=== PATIENT | male | born 1950 | race Caucasian/White ===

== ENCOUNTER 2017-10-18 05:57 | Inpatient (IN) | payer OTHER ==
[2017-10-13 14:30] VITALS: BMI 31.6
[2017-10-18] MEDS ORDERED: ROPIVICAINE 0.2%/MORPH PF/KETOROLAC - 51ML DISP.SYRINGE IA ONE ×2 (06:35→10:35)
[2017-10-18] MEDS ORDERED: CEFAZOLIN 2 GM in DEXTROSE 5%-WATER - 50 ML IVPB ONE (06:35)
[2017-10-18] MEDS ORDERED: TRANEXAMIC ACID 1000 MG/10 ML VIAL IVPUSH ONE ×2 (06:35→10:35)
[2017-10-18] MEDS ORDERED: ceFAZolin SODIUM 1 GM VIAL ONE ×2 (07:06→08:48)
[2017-10-18] MEDS ORDERED: VANCOMYCIN 1,000 MG VIAL (RESTRICTED TO ID ONLY) ONE (07:06)
[2017-10-18] MEDS ORDERED: MIDAZOLAM HCL 2 MG/2 ML SINGLE DOSE VIAL ONE (07:11)
[2017-10-18] MEDS ORDERED: DEXAMETHASONE SOD PHOSPHATE/PF 10 MG/ML SDV ONE (07:11)
[2017-10-18] MEDS ORDERED: BUPIVACAINE HCL/PF 2.5 MG/ML - 30 ML VIAL IJ ONE (07:12)
[2017-10-18] MEDS: oxyCODONE HCL 10 MG SUSTAINED ACTING TABLET PO ONE ×2 (07:21→12:18)
[2017-10-18] MEDS: PANTOPRAZOLE 40 MG TABLET (FP) PO ONE ×2 (07:21→12:18)
[2017-10-18] MEDS: GABAPENTIN 300 MG CAPSULE (FP) PO ONE ×2 (07:21→12:18)
[2017-10-18] MEDS: CELECOXIB 200 MG CAPSULE PO ONE ×2 (07:21→12:18)
[2017-10-18] MEDS ORDERED: SUCCINYLCHOLINE CHLORIDE 200 MG/10 ML VIAL ONE (07:22)
--- NOTE | 2017-10-18 07:45 | HP ---
History & Physical Update - History History: No Change - Physical Physical: No Change - Assessment Assessment: No Change - Plan Plan: No Change
[2017-10-18] MEDS ORDERED: PROPOFOL 20 ML ONE ×3 (08:16)
[2017-10-18] MEDS ORDERED: ONDANSETRON 4 MG/2 ML VIAL ONE (08:48)
[2017-10-18] MEDS ORDERED: TRANEXAMIC ACID 1000 MG/10 ML VIAL ONE ×2 (08:48→10:26)
[2017-10-18] MEDS ORDERED: DEXAMETHASONE SOD PHOSPHATE 4 MG/1 ML VIAL ONE (08:48)
[2017-10-18] MEDS ORDERED: VANCOMYCIN 1,000 MG VIAL (RESTRICTED TO ID ONLY) IVPB ONE (10:34)
[2017-10-18] MEDS ORDERED: KETOROLAC TROMETHAMINE 30 MG/1 ML VIAL ONE (11:22)
[2017-10-18] MEDS ORDERED: traMADol HCL 50 MG TABLET ONE (11:23)
[2017-10-18] MEDS ORDERED: ACETAMINOPHEN INJECTION 100 ML IVPB ONE (11:23)
[2017-10-18] MEDS ORDERED: ONDANSETRON 4 MG/2 ML VIAL IVPUSH PRN ×2 (11:33→11:51)
[2017-10-18] MEDS ORDERED: PROMETHAZINE HCL 25 MG/1 ML VIAL IVPUSH PRN (11:33)
[2017-10-18] MEDS ORDERED: oxyCODONE HCL 5 MG TABLET PO PRN (11:33)
--- NOTE | 2017-10-18 11:37 | OP ---
Operative Note - Note: Operative Date: 10/18/17 Pre-Operative Diagnosis: Left knee osteoarthritis Operation: left total knee arthroplasty Implants: Jacinta triathlon Patella [id number],. Triathlon posterior stabilized Femoral size 6 left. Thiathlon Tibial component size 7. Tibial bearing insert size 7 Post-Operative Diagnosis: Same as Pre-op Surgeon: Devonte Cooper Financial Planning Adviser: Rose Jolley Anesthesiologist/COMPUTER OPERATOR: Marcelo Peace Anesthesia: Spinal (With block and sedation) Specimens Removed: Distal femur, partial patella and proximal femur Estimated Blood Loss (mls): 150 Fluid Volume Replaced (mls): 600 Operative Report Dictated: Yes
--- NOTE | 2017-10-18 11:40 | SURG ---
Surgery Snow Maker Note Snow Maker: Rose Jolley PA-C Date of Service: 10/18/17 Diagnosis: Left knee osteoarthritis Procedure: left total knee arthroplasty I was present for the entirety of the operative procedure. For further detail, please refer to operative report. Visit type - Case Type Case Type: Scheduled Admission - Emergency Emergency Visit: No - New patient This patient is new to me today: Yes Date on this admission: 10/18/17
[2017-10-18] MEDS ORDERED: LACTATED RINGERS SOLUTION 1,000 ML IV SCH ×2 (11:45→12:00)
[2017-10-18] MEDS ORDERED: MAGNESIUM HYDROX 2400MG/30ML ORAL SUSPENSION 30 ML CUP PO PRN (11:51)
[2017-10-18] MEDS ORDERED: MAG HYDROX/AL HYDROX/SIMETH 30 ML UNIT-DOSE CUP PO PRN (11:51)
[2017-10-18] MEDS: KETOROLAC TROMETHAMINE 30 MG/1 ML VIAL IVPUSH SCH ×4 (12:06→23:49)
[2017-10-18] MEDS: ACETAMINOPHEN 1000 MG/100 ML VIAL (NON FORMULARY) IVPB ONE ×2 (12:06→12:41)
[2017-10-18] MEDS: traMADol HCL 50 MG TABLET PO SCH ×4 (12:06→23:50)
[2017-10-18] MEDS: ACETAMINOPHEN 325 MG TABLET (FP) PO SCH ×2 (17:34→23:50)
[2017-10-18] MEDS: CEFAZOLIN 2 GM/D5W 2 GM/50 ML ML IVPB SCH (18:05)
[2017-10-18] MEDS ORDERED: DEXAMETHASONE SOD PHOSPHATE 10 MG/1 ML VIAL IVPB ONE (20:00)
[2017-10-18] MEDS: ASCORBIC ACID 500 MG TABLET (FP) PO SCH (21:17)
[2017-10-18] MEDS: ATORVASTATIN CA 40 MG TABLET (FP) PO SCH (21:17)
[2017-10-18] MEDS: GABAPENTIN 300 MG CAPSULE (FP) PO SCH (21:17)
[2017-10-18] MEDS: SENNOSIDES/DOCUSATE COMBO (SENNA PLUS) TABLET (UD) PO SCH (21:17)
[2017-10-18] MEDS: CELECOXIB 200 MG CAPSULE PO SCH (21:18)
[2017-10-18] MEDS: oxyCODONE HCL 10 MG SUSTAINED ACTING TABLET PO SCH (21:18)
[2017-10-18] MEDS ORDERED: GABAPENTIN 300 MG CAPSULE (FP) PO SCH (22:00)
[2017-10-19] MEDS: CEFAZOLIN 2 GM/D5W 2 GM/50 ML ML IVPB SCH (02:07)
[2017-10-19] MEDS: ACETAMINOPHEN 325 MG TABLET (FP) PO SCH ×3 (05:55→18:18)
[2017-10-19] MEDS: KETOROLAC TROMETHAMINE 30 MG/1 ML VIAL IVPUSH SCH (05:55)
[2017-10-19] MEDS: traMADol HCL 50 MG TABLET PO SCH ×3 (05:56→18:18)
[2017-10-19 08:28] LABS: HEMATOCRIT 38.6 % (35.4-49); HEMOGLOBIN 13.3 GM/dl (11.7-16.9); MCH 31.4 pg (25.7-33.7); MCHC 34.4 g/dl (32.0-35.9); MEAN CELL VOLUME 91.2 fl (80-96); MEAN PLT VOLUME 8.6 fl (7.5-11.1); PLATELET COUNT 255 K/MM3 (134-434); RBC 4.23 M/mm3 (4.00-5.60); RDW 12.8 % (11.9-15.9); WHITE BLOOD COUNT 17.9 K/mm3 (4.0-10.8)
[2017-10-19] MEDS ORDERED: PT OWN MED DRAWER 7, Y5N ONE (09:05)
[2017-10-19] MEDS: TRIAMTERENE AND HCTZ - 37.5 MG/25 MG CAPSULE PO SCH (09:09)
[2017-10-19 09:10] LABS: ANION GAP 9 (8-16); BLOOD UREA NITROGEN 29 mg/dl (7-18); CALCIUM 9.4 mg/dl (8.4-10.2); CHLORIDE 101 mmol/L (98-107); CO2 25 mmol/L (22-28); CREATININE 1.2 mg/dl (0.6-1.3); GLUCOSE,RANDOM 208 mg/dl (74-106); POTASSIUM 4.7 mmol/L (3.5-5.1); SODIUM 135 mmol/L (136-145)
[2017-10-19] MEDS: MULTIVITAMINS (DAILY MVI) TABLET (FP) PO SCH (09:10)
[2017-10-19] MEDS: CELECOXIB 200 MG CAPSULE PO SCH ×2 (09:10→21:58)
[2017-10-19] MEDS: ASCORBIC ACID 500 MG TABLET (FP) PO SCH ×2 (09:10→21:59)
[2017-10-19] MEDS: PANTOPRAZOLE 40 MG TABLET (FP) PO SCH (09:10)
[2017-10-19] MEDS: RIVAROXABAN 10 MG TABLET PO SCH (09:10)
[2017-10-19] MEDS: METOPROLOL SUCCINATE 25 MG TAB.SR.24H (FP) PO SCH (09:10)
[2017-10-19] MEDS: GABAPENTIN 300 MG CAPSULE (FP) PO SCH ×2 (09:11→21:58)
[2017-10-19] MEDS: SENNOSIDES/DOCUSATE COMBO (SENNA PLUS) TABLET (UD) PO SCH ×2 (09:11→21:59)
[2017-10-19] MEDS: oxyCODONE HCL 10 MG SUSTAINED ACTING TABLET PO SCH ×2 (09:11→21:59)
--- NOTE | 2017-10-19 09:50 | PN ---
Progress Note (short form) - Note Progress Note: 67M POD1 s/p left TKR under spinal anesthetic with peripheral nerve blocks for post operative pain relief. Pt is doing well, states that pain is well controlled. Pt does not report any anesthetic complications. Pt reports slight ipsilateral numbness resolving as block wears off. Motor function is intact in bilateral lower extremities.
[2017-10-19] MEDS: oxyCODONE HCL 5 MG TABLET PO PRN (12:05)
[2017-10-19] MEDS: ATORVASTATIN CA 40 MG TABLET (FP) PO SCH (21:58)
--- NOTE | 2017-10-19 22:37 | PN ---
Progress Note (short form) - Note Progress Note: Pt seen and examined. Doing well. Minimal pain. Ambulated with PT. AVSS Selected Entries 10/19/17 10/19/17 14:08 20:43 Temperature 97.9 F Pulse Rate 90 Respiratory 18 Rate Blood Pressure 146/71 O2 Sat by Pulse 97 Oximetry (%) Oxygen Delivery Room Air Method Laboratory Tests 10/19/17 10/19/17 07:00 07:00 WBC 17.9 H Hgb 13.3 Hct 38.6 Plt Count 255 Sodium 135 L Potassium 4.7 Chloride 101 Carbon Dioxide 25 Anion Gap 9 BUN 29 H Creatinine 1.2 Calcium 9.4 Gen: NAD LLE: c/d/i, NVID A/P 67yo male POD#1 s/p L TKA 1. PT/OOB - WBAT LLE 2. D/C home in AM. F/U in office in 10-14 days.
[2017-10-20] MEDS: ACETAMINOPHEN 325 MG TABLET (FP) PO SCH ×3 (00:07→12:19)
[2017-10-20] MEDS: traMADol HCL 50 MG TABLET PO SCH ×3 (00:08→12:21)
[2017-10-20 05:01] VITALS: PULSE 73
[2017-10-20 08:32] LABS: HEMATOCRIT 32.6 % (35.4-49); MCH 30.5 pg (25.7-33.7); MCHC 33.8 g/dl (32.0-35.9); MEAN CELL VOLUME 90.3 fl (80-96); MEAN PLT VOLUME 8.8 fl (7.5-11.1); PLATELET COUNT 225 K/MM3 (134-434); RBC 3.61 M/mm3 (4.00-5.60); RDW 12.8 % (11.9-15.9); WHITE BLOOD COUNT 11.7 K/mm3 (4.0-10.8)
[2017-10-20] MEDS: METOPROLOL SUCCINATE 25 MG TAB.SR.24H (FP) PO SCH (09:49)
[2017-10-20] MEDS: CELECOXIB 200 MG CAPSULE PO SCH (09:50)
[2017-10-20] MEDS: PANTOPRAZOLE 40 MG TABLET (FP) PO SCH (09:50)
[2017-10-20] MEDS: MULTIVITAMINS (DAILY MVI) TABLET (FP) PO SCH (09:50)
[2017-10-20] MEDS: GABAPENTIN 300 MG CAPSULE (FP) PO SCH (09:50)
[2017-10-20] MEDS: ASCORBIC ACID 500 MG TABLET (FP) PO SCH (09:50)
[2017-10-20] MEDS: oxyCODONE HCL 10 MG SUSTAINED ACTING TABLET PO SCH (09:51)
[2017-10-20] MEDS: SENNOSIDES/DOCUSATE COMBO (SENNA PLUS) TABLET (UD) PO SCH (09:51)
[2017-10-20] MEDS: oxyCODONE HCL 5 MG TABLET PO PRN (09:51)
[2017-10-20 09:52] LABS: ANION GAP 9 (8-16); BLOOD UREA NITROGEN 35 mg/dl (7-18); CALCIUM 8.9 mg/dl (8.4-10.2); CHLORIDE 97 mmol/L (98-107); CO2 27 mmol/L (22-28); CREATININE 1.2 mg/dl (0.6-1.3); GLUCOSE,RANDOM 113 mg/dl (74-106); POTASSIUM 4.2 mmol/L (3.5-5.1); SODIUM 133 mmol/L (136-145)
[2017-10-20] MEDS ORDERED: PT OWN MED DRAWER 7, Y5N ONE (09:56)
[2017-10-20] MEDS: TRIAMTERENE AND HCTZ - 37.5 MG/25 MG CAPSULE PO SCH (09:57)
[2017-10-20] MEDS: RIVAROXABAN 10 MG TABLET PO SCH (09:58)
--- NOTE | 2017-10-20 11:16 | DS ---
Physical Examination Vital Signs: Vital Signs Temperature 98.6 F 10/20/17 05:00 Pulse Rate 73 10/20/17 05:00 Respiratory Rate 20 10/20/17 05:00 Blood Pressure 97/49 10/20/17 05:00 O2 Sat by Pulse Oximetry (%) 97 10/20/17 08:18 Labs: CBC, BMP 10/20/17 08:20 10/20/17 08:20 Discharge Summary Reason For Visit: OSTEOARTHRITIS OF LEFT KNEE Current Active Problems Unilateral primary osteoarthritis, left knee (Acute) Procedures: Principal: Left TKA Hospital Course: Admitted for elective surgery. Procedure performed without complications. Pt received postoperative antibiotic prophylaxis and DVT ppx. Ambulated with physical therapy. Stable for discharge home with outpatient followup. Condition: Stable - Instructions Diet, Activity, Other Instructions: Dr. Cooper - Knee Replacement Instructions Keep the Aquacel dressing on until removed by Dr. Cooper in 10-14 days - it is antibacterial and waterproof and you can shower with it on, do not submerge incision until cleared by your surgeon. Call the office for a follow-up appointment with Dr. Cooper in 10-14 days. . Take Xarelto 20mg daily as directed by your transit planner, this will also cover you for DVT prophylaxis immediately post op. Take one Pantoprazole 40mg daily for 6 weeks to protect against heartburn and ulcers. Take a multivitamin, stool softener, and extra vitamin C supplement daily. Take Cephalexin 500mg three times daily for 14 days; this is an antibiotic to prevent help infection while the skin incision heals. For pain: BEFORE THE SURGERY, THE ANESTHESIOLOGIST PERFORMED A NERVE BLOCK WHICH LASTS FOR 48-72 HOURS. YOUR PAIN LEVEL MAY INCREASE WHEN THIS WEARS OFF - EXPECT THAT TO HAPPEN IN APPROXIMATELY 3 DAYS (WEDNESDAY) AND TAKE PAIN MEDICATIONS NEEDED. *Mild pain (1-3/10): Take 1 Tramadol tablet every 4 hours as needed. Moderate pain (4-6/10): Take 1 Tramadol tablet and 1 Percocet tablet every 4 hours as needed. Severe pain (7-10/10): Take 1 Tramadol tablet and 2 Percocet tablets every 4 hours as needed. Activity: You can put as much weight on the operative leg as you want. Right after you get home, there will be a physical therapist coming to your house to help you walk around and bend/straighten your knee. After your follow-up appointment, you will be sent for more intensive outpatient physical therapy which will include machines and equipment that the home therapist cannot bring to your house. Always use a walker or cane for balance and to prevent falls. Disposition: VNS/HOME HEALTH CARE - Home Medications Comprehensive Discharge Medication List: Ambulatory Orders Atorvastatin Ca [Lipitor] 40 mg PO HS 10/13/17 Metoprolol Succinate [Toprol Xl] 25 mg PO DAILY 10/13/17 Rivaroxaban [Xarelto -] 20 mg PO DAILY 10/13/17 Triamterene/Hydrochlorothiazid [Triamterene-Hctz 37.5-25 mg Cp] 1 each PO DAILY 10/13/17 Ascorbic Acid [Vitamin C -] 500 mg PO BID tablet 10/18/17 Cephalexin [Keflex] 500 mg PO TID #42 capsule 10/18/17 Multivitamins [Multivit ([facility] Formulary)] 1 tab PO DAILY tab 10/18/17 Oxycodone HCl/Acetaminophen [Percocet 5-325 mg Tablet] 1 - 2 tab PO Q4H PRN #60 tablet MDD 8 10/18/17 Pantoprazole Sodium [Protonix -] 40 mg PO DAILY #40 tablet.ec 10/18/17 Tramadol HCl [Ultram -] 50 mg PO Q4H PRN #90 tablet MDD 6 10/18/17
[2017-10-20 13:37] VITALS: BP 123/50; TEMP 97.9
--- NOTE | 2017-10-26 16:28 | PATH ---
Surgical Pathology Report Patient Name: YUNG CORNELL Med. Rec. #: [id number] /Age/Gender: 1950 (Age: 67) / M Account: [id number] Location: [facility] Taken: 10/18/2017 Received: 10/18/2017 Reported: 10/26/2017 Physicians: Devonte Cooper M.D. Specimen(s) Received LEFT KNEE BONES Clinical History Left knee osteoarthritis Final Diagnosis BONE, LEFT KNEE, TOTAL KNEE REPLACEMENT: DEGENERATIVE JOINT DISEASE. Electronically Signed Rose Mcdaniel M.D. Gross Description Received in formalin labeled "left knee bone," is a 10.3 x 9.8 x 1.5 cm aggregate of multiple irregular portions of bone with minimal attached soft tissue, consistent with knee bones. There is a 1.5 cm in greatest dimension area of eburnation identified. The remaining articular surfaces are martinez-yellow and diffusely granular. The underlying trabecular bone is yellow and hard. Natural Resources Technician sections are submitted in one cassette, following decalcification. 10/20/2017 [facility]10/20/2017
== END 2017-10-20 14:50 | disposition home health service (06) | DRG 302 ==
LOC: FM/S 05:57
PROVIDERS: ADMIT Student in an Organized Health Care Education/Training Program; ATTEND Student in an Organized Health Care Education/Training Program
PROC: 0SRD0JA Replacement of Left Knee Joint with Synthetic Substitute, Uncemented, Open Approach (ICD-10-PCS; principal; 2017-10-18 08:00)
DX: M17.12 Unilateral primary osteoarthritis, left knee (principal)
CPT/HCPCS: 36415; 73560-TC-LT; 80048; 85027; 94010; 94760; 97116-GP; 97162-GP; J1100

== ENCOUNTER 2018-12-20 06:20 | Observation (INO) | payer OTHER ==
[2018-12-20] MEDS ORDERED: KETOROLAC TROMETHAMINE 30 MG/1 ML VIAL IVPUSH ONE (06:49)
[2018-12-20] MEDS ORDERED: morphine CARPU-JECT 2 MG/1 ML DISP.SYRIN IVPUSH ONE ×2 (06:49→14:26)
--- NOTE | 2018-12-20 06:49 | PDOC ---
History of Present Illness - General Chief Complaint: Pain, Acute Stated Complaint: PAIN AND SWELLING TO LEFT KNEE Time Seen by Provider: 12/20/18 06:43 History Source: Patient Exam Limitations: No Limitations - History of Present Illness Initial Comments: 12/20/18 06:48 This is a 68-year-old male who comes in complaining of acute onset 1 day of left knee and lower leg swelling and pain. Patient is status post left knee replacement approximately one year ago. Patient said he was at physical therapy yesterday and everything was fine and then after physical therapy he started developing pain in the knee which progressed to pain in the calf as well as swelling in the calf and knee. Patient denies any fevers or chills. Patient said it is very painful and was difficult for him to walk. Allergies: as per nursing notes Past Medical History: hypertension, high cholesterol Social history: Lives with family. No smoking. No alcohol. No illicit drugs. Surgical history: left knee replacement General: No fevers or chills, no weakness, no weight loss HEENT: No change in vision. No sore throat,. No ear pain CardioVascular: no chest discomfort. No shortness of breath Respiratory:No cough, or wheezing. Gastrointestinal: no nausea, vomiting, diarrhea or constipation, No rectal bleeding Genitourinary: No dysuria, hematuria, or frequency Musculoskeletal: No joint or muscle pain or swelling Neurologic: No headache, vertigo, dizziness or loss of consciousness Psychiatric: nor depression Skin: No rashes or easy bruising Endocrine: no increased thirst or abnormal weight change Allergic: no skin or latex allergy All other systems reviewed and normal GENERAL: The patient is awake, alert, and fully oriented, in no acute distress. HEAD: Normal with no signs of trauma. EYES: Pupils equal, round and reactive to light, extraocular movements intact, sclera anicteric, conjunctiva clear. EXTREMITIES:atraumatic, healed scar over knee, knee is swollen with tenderness , calf is also swollen and tender, no palpable cord of thigh, DP pulses are 2 + bilateral with good cap refill. NEUROLOGICAL: Normal speech, normal gait. PSYCH: Normal mood, normal affect. SKIN: Warm, Dry, normal turgor, no rashes or lesions noted. Case discussed in detail with oncoming Emergency Physician including history, physical exam and ancillary studies. Oncoming Emergency Physician has assumed care for the patient and will complete the evaluation and treatment. Patient is aware of the plan. Pt is clinically unchanged and stable. Past History - Past Medical History Allergies/Adverse Reactions: Allergies Allergy/AdvReac Type Severity Reaction Status Date / Time No Known Drug Allergies Allergy Verified 12/20/18 06:32 Home Medications: Ambulatory Orders Atorvastatin Ca [Lipitor] 40 mg PO HS 10/13/17 Metoprolol Succinate [Toprol Xl] 25 mg PO DAILY 10/13/17 Triamterene/Hydrochlorothiazid [Triamterene-Hctz 37.5-25 mg Cp] 1 each PO DAILY 10/13/17 traMADol HCL [Ultram -] 50 mg PO Q4H PRN #90 tablet MDD 6 10/18/17 Anemia: No Asthma: No Cancer: No Cardiac Disorders: Yes (irregular heart-A-Fib) CVA: No COPD: No CHF: No Dementia: No Diabetes: No GI Disorders: No Disorders: No HTN: Yes Hypercholesterolemia: Yes Liver Disease: No Seizures: No Thyroid Disease: No - Surgical History Abdominal Surgery: No Appendectomy: No Cardiac Surgery: Yes (defibrillator) Cholecystectomy: No Lung Surgery: No Neurologic Surgery: No Orthopedic Surgery: Yes (L knee arthroscopy) - Suicide/Smoking/Psychosocial Hx Smoking History: Never smoked Have you smoked in the past 12 months: No Information on smoking cessation initiated: No Hx Alcohol Use: No Drug/Substance Use Hx: No Substance Use Type: Alcohol Hx Substance Use Treatment: No *Physical Exam - Vital Signs Last Vital Signs Temp Pulse Resp BP Pulse Ox 97.8 F 81 16 141/83 99 12/20/18 06:38 12/20/18 06:38 12/20/18 06:38 12/20/18 06:38 12/20/18 06:38 Moderate Sedation - Procedure Monitoring Vital Signs: Procedure Monitoring Vital Signs Temperature 97.8 F 12/20/18 06:38 Pulse Rate 81 12/20/18 06:38 Respiratory Rate 16 12/20/18 06:38 Blood Pressure 141/83 12/20/18 06:38 O2 Sat by Pulse Oximetry (%) 99 12/20/18 06:38 ED Treatment Course - LABORATORY CBC & Chemistry Diagram: 12/22/18 07:06 12/21/18 07:10 *DC/Admit/Observation/Transfer Diagnosis at time of Disposition: Hematoma of left lower extremity Qualifiers: Encounter type: initial encounter Qualified Code(s): S80.12XA - Contusion of left lower leg, initial encounter - Discharge Dispostion Disposition: HOME Condition at time of disposition: Stable - Referrals - Patient Instructions - Post Discharge Activity
[2018-12-20] MEDS ORDERED: KETOROLAC TROMETHAMINE 30 MG/1 ML VIAL ONE (07:16)
[2018-12-20] MEDS ORDERED: morphine SULFATE 4 MG/ML VIAL ONE ×2 (07:16→14:26)
[2018-12-20 07:27] LABS: BASO % 0.6 % (0-2.0); EOS % 1.7 % (0-4.5); HEMATOCRIT 41.4 % (35.4-49); HEMOGLOBIN 13.8 GM/dl (11.7-16.9); LYMPH % 19.7 % (8-40); MCH 30.1 pg (25.7-33.7); MCHC 33.2 g/dl (32.0-35.9); MEAN CELL VOLUME 90.7 fl (80-96); MEAN PLT VOLUME 7.5 fl (7.5-11.1); MONO % 7.4 % (3.8-10.2); NEUT % 70.6 % (42.8-82.8); PLATELET COUNT 244 K/MM3 (134-434); RBC 4.56 M/mm3 (4.00-5.60); RDW 12.8 % (11.9-15.9); WHITE BLOOD COUNT 8.7 K/mm3 (4.0-10.8)
[2018-12-20 08:00] LABS: ALK PHOS 84 U/L (45-117); ANION GAP 9 MMOL/L (8-16); BILIRUBIN,TOTAL 0.9 mg/dl (0.2-1); BLOOD UREA NITROGEN 24 mg/dl (7-18); CHLORIDE 102 mmol/L (98-107); CO2 25 mmol/L (21-32); CREATININE 1.1 mg/dl (0.55-1.3); GLUCOSE,RANDOM 142 mg/dl (74-106); POTASSIUM 3.9 mmol/L (3.5-5.1); SGOT/AST 20 U/L (15-37); SGPT/ALT 20 U/L (13-61); SODIUM 136 mmol/L (136-145); TOT PROT 6.7 g/dl (6.4-8.2); URIC ACID 8.6 mg/dl (2.6-7.2)
--- NOTE | 2018-12-20 10:52 | PDOC ---
*Physical Exam - Vital Signs Last Vital Signs Temp Pulse Resp BP Pulse Ox 97.8 F 81 16 141/83 99 12/20/18 06:38 12/20/18 06:38 12/20/18 06:38 12/20/18 06:38 12/20/18 06:38 - Physical Exam Comments: 12/20/18 10:50 alert, nad lying in stretcher afebrile LLE: swelling with subtle ecchymosis to calf, extends from knee to distal lower leg, foot otherwise well perfused with 2+ distal pulses. FROM ankle/toes, slightly limited at knee Heart Score/ECG Review #1 ECG reviewed & interpreted by me at: 12:35 General ECG Interpretation: Sinus Rhythm, Normal Rate (67), Normal Intervals ( qtc 456), No acute ischemic changes ED Treatment Course - LABORATORY CBC & Chemistry Diagram: 12/20/18 07:05 12/20/18 07:05 - ADDITIONAL ORDERS Additional order review: Laboratory Results 12/20/18 07:05 Sodium 136 Potassium 3.9 Chloride 102 Carbon Dioxide 25 Anion Gap 9 BUN 24 H Creatinine 1.1 Creat Clearance w eGFR 66.57 Random Glucose 142 H Uric Acid 8.6 H Calcium 9.0 Total Bilirubin 0.9 AST 20 ALT 20 Alkaline Phosphatase 84 Total Protein 6.7 Albumin 4.0 12/20/18 07:05 RBC 4.56 MCV 90.7 MCHC 33.2 RDW 12.8 MPV 7.5 D Neutrophils % 70.6 Lymphocytes % 19.7 Monocytes % 7.4 Eosinophils % 1.7 Basophils % 0.6 - RADIOLOGY Radiology Studies Ordered: Category Date Time Status LOWER EXTREMITY CT WITH CONTR [CT] Stat CT Scan 12/20/18 10:29 Ordered - Medications Given in the ED: ED Medications Discontinued Medications Generic Name Dose Route Start Last Admin Trade Name Freq PRN Reason Stop Dose Admin Ketorolac Tromethamine 30 mg 12/20/18 06:49 12/20/18 07:23 Toradol Injection - IVPUSH 12/20/18 06:50 30 mg ONCE ONE Administration Morphine Sulfate 2 mg 12/20/18 06:49 12/20/18 07:22 Morphine Injection - IVPUSH 12/20/18 06:50 2 mg ONCE ONE Administration Medical Decision Making - Medical Decision Making 12/20/18 10:51 received signout on this 68y/o M with spontaneous swelling/pain to Left lower leg, h/o TKR and afib on asa. presentation seems most consistent with hematoma, ? cyst rupture. labs sent and are wnl, no leukocytosis and only subtle elevation in uric acid. doppler shows patent veins but >6cm mass/hematoma. Will obtain CT for further evaluation. 12/20/18 11:56 CT confirms 6x3.5x14cm L gastrocnemius hematoma. Pt pain improved but unable to bear weight. Dr. Cooper (pt's orthopedic) consulted, will likely need admission for pulse checks and pain control. 12/20/18 12:39 Dr. Cooper away, Dr. Khan covering and called. Admit to [facility], covering Dr. Patel. 12/20/18 12:59 Accepted for obs med/surg by Dr. Cooley, signout given to ROSANGELA Albert. *DC/Admit/Observation/Transfer Diagnosis at time of Disposition: Hematoma of left lower extremity Qualifiers: Encounter type: initial encounter Qualified Code(s): S80.12XA - Contusion of left lower leg, initial encounter - Discharge Dispostion Condition at time of disposition: Stable Decision to Admit order: Yes - Referrals - Patient Instructions - Post Discharge Activity
[2018-12-20] MEDS ORDERED: SODIUM CHLORIDE 1,000 ML IV ONE (11:20)
--- NOTE | 2018-12-20 13:21 | HP ---
CHIEF COMPLAINT: Pain and swelling left lower leg x 1 day PCP: Dr. Patel HISTORY OF PRESENT ILLNESS: 68 year-old male with a PMH significant for HTN, HLD, atrial fibrillation on ASA only, s/p left total knee arthroplasty in 10/2017, who presents to the ED with pain and swelling to left lower leg x 1 day. 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 He went to work yesterday morning in his usual state of health. During the course of the day he developed pain in his left lower leg. The pain progressed throughout the day, associated with swelling. He came home limping. He elevated and iced the leg and went to bed. He awoke during the night with severe pain and came to the ED. He has difficulty ambulating. Denies fever, sweats, chills. Patient cannot recall injuring the leg or any type of trauma. He did have a previous episode of a hematoma around the left knee approximately one month post-op. At the time he was Xarelto. 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 Patient has been on ASA ever since, about 11 months. ER course was notable for: (1) Hgb 13.8 (2) US left leg: (1) negative for DVT; (2) large complex mass wihtin medical calf c/w hematoma (3) CT LLE: 6.2 x 3.5 x 13.9cm hematoma within the gastrocnemius muscle of the proximal calf (4) ECG: sinus rhythm Recent Travel: No PAST MEDICAL HISTORY: Hypertension Hyperlipidemia Atrial fibrillation PAST SURGICAL HISTORY: Left total knee arthroplasty (10/2017, Kenneth) AICYadiar Social History: Smoking: never Alcohol: no Drugs: no Family History: Allergies No Known Drug Allergies Allergy (Verified 12/20/18 06:32) HOME MEDICATIONS: Home Medications Medication Instructions Recorded Atorvastatin Ca [Lipitor] 40 mg PO HS 10/13/17 Metoprolol Succinate [Toprol Xl] 25 mg PO DAILY 10/13/17 Triamterene/Hydrochlorothiazid 1 each PO DAILY 10/13/17 [Triamterene-Hctz 37.5-25 mg Cp] traMADol HCL [Ultram -] 50 mg PO Q4H PRN #90 tablet MDD 6 10/18/17 Aspirin 81 mg PO DAILY 12/20/18 REVIEW OF SYSTEMS CONSTITUTIONAL: Absent: fever, chills, diaphoresis, generalized weakness, malaise, loss of appetite, weight change HEENT: Absent: rhinorrhea, nasal congestion, throat pain, throat swelling, difficulty swallowing, mouth swelling, ear pain, eye pain, visual changes CARDIOVASCULAR: Absent: chest pain, syncope, palpitations, irregular heart rate, lightheadedness , peripheral edema RESPIRATORY: Absent: cough, shortness of breath, dyspnea with exertion, orthopnea, wheezing, stridor, hemoptysis GASTROINTESTINAL: Absent: abdominal pain, abdominal distension, nausea, vomiting, diarrhea, constipation, melena, hematochezia GENITOURINARY: Absent: dysuria, frequency, urgency, hesitancy, hematuria, flank pain, genital pain MUSCULOSKELETAL: +pain and swelling to LLE Absent: myalgia, arthralgia, joint swelling, back pain, neck pain SKIN: Absent: rash, itching, pallor HEMATOLOGIC/IMMUNOLOGIC: Absent: easy bleeding, easy bruising, lymphadenopathy, frequent infections ENDOCRINE: Absent: unexplained weight gain, unexplained weight loss, heat intolerance, cold intolerance NEUROLOGIC: Absent: headache, focal weakness or paresthesias, dizziness, unsteady gait, seizure, mental status changes, bladder or bowel incontinence PSYCHIATRIC: Absent: anxiety, depression, suicidal or homicidal ideation, hallucinations. PHYSICAL EXAMINATION Vital Signs - 24 hr 12/20/18 06:38 Temperature 97.8 F Pulse Rate 81 Respiratory 16 Rate Blood Pressure 141/83 O2 Sat by Pulse 99 Oximetry (%) GENERAL: Awake, alert, and fully oriented, in no acute distress. LUNGS: Breath sounds equal, clear to auscultation bilaterally. No wheezes, and no crackles. No accessory muscle use. HEART: Regular rate and rhythm, S1 and S2 ABDOMEN: Soft, nontender, not distended, normoactive bowel sounds, no guarding, no rebound tenderness UPPER EXTREMITIES: 2+ pulses, warm, well-perfused. No cyanosis. No clubbing. No peripheral edema. LEFT LOWER EXTREMITY: strong palpable DP pulse, 2+ pulses, warm, well-perfused. Swelling from knee to ankle, no erythema, no warmth. NEUROLOGICAL: Cranial nerves II-XII intact. Normal speech. Laboratory Results - last 24 hr 12/20/18 12/20/18 07:05 07:05 WBC 8.7 RBC 4.56 Hgb 13.8 Hct 41.4 D MCV 90.7 MCH 30.1 MCHC 33.2 RDW 12.8 Plt Count 244 MPV 7.5 D Absolute Neuts (auto) 6.2 Neutrophils % 70.6 Lymphocytes % 19.7 Monocytes % 7.4 Eosinophils % 1.7 Basophils % 0.6 Sodium 136 Potassium 3.9 Chloride 102 Carbon Dioxide 25 Anion Gap 9 BUN 24 H Creatinine 1.1 Creat Clearance w eGFR 66.57 Random Glucose 142 H Uric Acid 8.6 H Calcium 9.0 Total Bilirubin 0.9 AST 20 ALT 20 Alkaline Phosphatase 84 Total Protein 6.7 Albumin 4.0 ASSESSMENT/PLAN: 68 year-old male with a PMH significant for HTN, HLD, atrial fibrillation on ASA only, s/p left total knee arthroplasty in 10/2017. Placed on observation for a large left calf hematoma. 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 Cronin stopped Xarelto at that time and switched patient to ASA --discussed with MEREDITH Monson with Dr. Cooper's office; will see patient as outpatient --DP pulse checks q1h overnight --monitor for signs and symptoms of compartment syndrome: pain, pallor paresthesia, pulselessness, paralysis --consider reimaging tomorrow to assess size of hematoma --monitor h/h Atrial fibrillation --presently in sinus rhythm --hold ASA secondary to bleed --continue Toprol XL 25mg daily Hypertension --BP stable --continue traimterine/HCTZ Hyperlipidemia --continue atorvastatin FEN Fluids: PO intake adequate Electrolytes: replete as indicated Nutrition: low sodium DVT prophylaxis: hold chemical prophylaxis due to bleeding; SCD right leg; oob Dispo: continues to require observation. Full code. Visit type - Emergency Visit Emergency Visit: Yes ED Registration Date: 12/20/18 Care time: The patient presented to the Emergency Department on the above date and was hospitalized for further evaluation of their emergent condition. - New Patient This patient is new to me today: Yes Date on this admission: 12/23/18 - Critical Care Critical Care patient: No
[2018-12-20 19:11] VITALS: BMI 31.4
[2018-12-20] MEDS ORDERED: morphine CARPU-JECT 2 MG/1 ML DISP.SYRIN IVPUSH PRN (20:20)
[2018-12-20] MEDS ORDERED: ACETAMINOPHEN 1000 MG/100 ML VIAL (NON FORMULARY) IVPB PRN (20:21)
[2018-12-20] MEDS: DEXTROSE 5%-NORMAL SALINE 1,000 ML IV SCH (20:30)
[2018-12-20] MEDS ORDERED: LIDOCAINE HCL 1%, 10 MG/ML (50 mL VIAL) SQ ONE (20:37)
--- NOTE | 2018-12-20 20:38 | CONSULT ---
Consult Consult Specialty:: General Surgery Reason for Consultation:: LLE acute compartmant syndrome? - History of Present Illness Chief Complaint: LLE swelling History of Present Illness: 68 year-old male with a PMH significant for HTN, HLD, atrial fibrillation on ASA only, s/p left total knee arthroplasty in 10/2017, who presents to the ED with pain and swelling to left lower leg x 1 day after working in a hole doing a plumbing project. 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 He went to work yesterday morning in his usual state of health. During the course of the day he developed pain in his left lower leg. The pain progressed throughout the day, associated with swelling. He came home limping. He elevated and iced the leg and went to bed. He awoke during the night with severe pain and came to the ED. He has difficulty ambulating. Denies fever, sweats, chills. Patient cannot recall injuring the leg or any type of trauma. He did have a previous episode of a hematoma around the left knee approximately one month post -op. At the time he was Xarelto. His property developer stopped Xarelto and switched patient to ASA. Patient has been on ASA ever since, about 11 months. we were asked to assess. - History Source History Provided By: Patient, Medical Record Limitations to Obtaining History: No Limitations - Alcohol/Substance Use Hx Alcohol Use: No - Smoking History Smoking history: Never smoked Have you smoked in the past 12 months: No Home Medications - Allergies Allergies/Adverse Reactions: Allergies Allergy/AdvReac Type Severity Reaction Status Date / Time No Known Drug Allergies Allergy Verified 12/20/18 06:32 - Home Medications Home Medications: Ambulatory Orders Atorvastatin Ca [Lipitor] 40 mg PO HS 10/13/17 Metoprolol Succinate [Toprol Xl] 25 mg PO DAILY 10/13/17 Triamterene/Hydrochlorothiazid [Triamterene-Hctz 37.5-25 mg Cp] 1 each PO DAILY 10/13/17 traMADol HCL [Ultram -] 50 mg PO Q4H PRN #90 tablet MDD 6 10/18/17 Aspirin 81 mg PO DAILY 12/20/18 Review of Systems - Review of Systems Constitutional: denies: Chills, Fever Eyes: denies: Blind Spots, Recent Change in Vision HENT: denies: Difficult Swallowing, Throat Pain Neck: denies: Decreased ROM, Pain on Movement Cardiovascular: denies: Chest Pain, Palpitations Respiratory: denies: Cough, SOB Gastrointestinal: denies: Abdominal Pain, Constipation, Diarrhea Genitourinary: denies: Discharge, Dysuria Breasts: reports: No Symptoms Reported. denies: See HPI, Pain Musculoskeletal: reports: Joint Pain, Joint Swelling Integumentary: denies: Change in Color, Eczema, Rash Neurological: denies: Seizure, Syncope Endocrine: denies: Unexplained Weight Gain, Unexplained Weight Loss Hematology/Lymphatic: denies: Easily Bruised, Excessive Bleeding Psychiatric: denies: Anxiety, Depression Physical Exam Vital Signs: Vital Signs Temperature 98.7 F 12/20/18 17:34 Pulse Rate 70 12/20/18 17:34 Respiratory Rate 16 12/20/18 20:26 Blood Pressure 141/69 12/20/18 17:34 O2 Sat by Pulse Oximetry (%) 97 12/20/18 20:26 Constitutional: Yes: No Distress, Calm, Obese Eyes: Yes: Conjunctiva Clear, EOM Intact HENT: Yes: Atraumatic, Normocephalic Neck: Yes: Supple, Trachea Midline Cardiovascular: Yes: Regular Rate and Rhythm, S1, S2 Respiratory: Yes: Regular, CTA Bilaterally Gastrointestinal: Yes: Normal Bowel Sounds, Soft, Abdomen, Obese. No: Tenderness ...Rectal Exam: Yes: Deferred Renal/: No: CVA Tenderness - Left, CVA Tenderness - Right Breast(s): No: Discharge from Nipple, Nipple Inversion, Skin Changes Musculoskeletal: Yes: Joint Swelling (LLE below the knee). 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 Rapidly assessed: anterior and medial compartments are soft. posterior compartments superficial 5mmHg, deep 11mmHg. No acute surgical intervention Left leg elevation above heart level Orthopedic followup up Duplex to R/O DVT - negative reading 12/20 Recall as needed Thank you for the opportunity to participate in the care of this patient. Code(s): M79.89 - OTHER SPECIFIED SOFT TISSUE DISORDERS (2) Localized swelling of lower leg Code(s): R22.40 - LOCALIZED SWELLING, MASS AND LUMP, UNSPECIFIED LOWER LIMB (3) Obesity Code(s): E66.9 - OBESITY, UNSPECIFIED Qualifiers: Serious obesity comorbidity presence: with serious comorbidity Body mass index: BMI 31.0-31.9 (4) Hematoma of left lower extremity Code(s): S80.12XA - CONTUSION OF LEFT LOWER LEG, INITIAL ENCOUNTER Qualifiers: Encounter type: initial encounter Qualified Code(s): S80.12XA - Contusion of left lower leg, initial encounter (5) HTN (hypertension) Code(s): I10 - ESSENTIAL (PRIMARY) HYPERTENSION Qualifiers: Hypertension type: essential hypertension Qualified Code(s): I10 - Essential (primary) hypertension (6) HLD (hyperlipidemia) Code(s): E78.5 - HYPERLIPIDEMIA, UNSPECIFIED Qualifiers: Hyperlipidemia type: pure hypercholesterolemia Qualified Code(s): E78.00 - Pure hypercholesterolemia, unspecified; E78.0 - Pure hypercholesterolemia (7) A-fib Code(s): I48.91 - UNSPECIFIED ATRIAL FIBRILLATION Qualifiers: Atrial fibrillation type: chronic Qualified Code(s): I48.2 - Chronic atrial fibrillation
[2018-12-21 08:02] LABS: BASO % 0.7 % (0-2.0); EOS % 2.9 % (0-4.5); HEMATOCRIT 36.3 % (35.4-49); HEMOGLOBIN 12.1 GM/dl (11.7-16.9); LYMPH % 21.1 % (8-40); MCH 30.9 pg (25.7-33.7); MCHC 33.4 g/dl (32.0-35.9); MEAN CELL VOLUME 92.6 fl (80-96); MEAN PLT VOLUME 7.9 fl (7.5-11.1); MONO % 8.1 % (3.8-10.2); NEUT % 67.2 % (42.8-82.8); RBC 3.92 M/mm3 (4.00-5.60); RDW 12.8 % (11.9-15.9); WHITE BLOOD COUNT 6.8 K/mm3 (4.0-10.8)
[2018-12-21 08:43] LABS: ALBUMIN 3.2 g/dl (3.4-5.0); ALK PHOS 71 U/L (45-117); ANION GAP 3 MMOL/L (8-16); BILIRUBIN,TOTAL 1.1 mg/dl (0.2-1); BLOOD UREA NITROGEN 20 mg/dl (7-18); CALCIUM 8.6 mg/dl (8.5-10); CHLORIDE 106 mmol/L (98-107); CO2 27 mmol/L (21-32); GLUCOSE,RANDOM 128 mg/dl (74-106); MAGNESIUM 1.8 mg/dL (1.8-2.4); POTASSIUM 3.7 mmol/L (3.5-5.1); SGOT/AST 16 U/L (15-37); SGPT/ALT 16 U/L (13-61); SODIUM 136 mmol/L (136-145); TOT PROT 5.7 g/dl (6.4-8.2)
[2018-12-21 09:03] LABS: PLATELET COUNT 208 K/MM3 (134-434)
[2018-12-21] MEDS ORDERED: PT OWN MED DRAWER 7, Y5N ONE (09:17)
[2018-12-21] MEDS: TRIAMTERENE AND HCTZ - 37.5 MG/25 MG CAPSULE PO SCH (09:20)
[2018-12-21] MEDS: metoPROLOL SUCCINATE 25 MG TAB.SR.24H (FP) PO SCH (09:20)
--- NOTE | 2018-12-21 10:27 | EKG ---
Test Reason : Blood Pressure : / mmHG Vent. Rate : 067 BPM Atrial Rate : 067 BPM P-R Int : 176 ms QRS Dur : 088 ms QT Int : 432 ms P-R-T Axes : 039 018 016 degrees QTc Int : 456 ms NORMAL SINUS RHYTHM NORMAL ECG WHEN COMPARED WITH ECG OF 03-FEB-2010 08:38, NO SIGNIFICANT CHANGE WAS FOUND Confirmed by PREETI JEFFERSON MD ([id number]) on 12/21/2018 10:26:50 AM Referred By: DR DOYLE Confirmed By:PREETI JEFFERSON MD
--- NOTE | 2018-12-21 16:46 | PN ---
Physical Exam: SUBJECTIVE: Patient seen and examined at bedside. Leg is still swollen and painful. OBJECTIVE: Vital Signs Period Temp Pulse Resp BP Sys/Chavira Pulse Ox Last 24 Hr 97.6 F-98.8 F 65-78 16-20 123-141/62-76 97-100 GENERAL: Awake, alert, and fully oriented, in no acute distress. LUNGS: Breath sounds equal, clear to auscultation bilaterally. No wheezes, and no crackles. No accessory muscle use. HEART: Regular rate and rhythm, S1 and S2 ABDOMEN: Soft, nontender, not distended, normoactive bowel sounds, no guarding, no rebound tenderness UPPER EXTREMITIES: 2+ pulses, warm, well-perfused. No cyanosis. No clubbing. No peripheral edema. LEFT LOWER EXTREMITY: strong palpable DP pulse, 2+ pulses, warm, well-perfused. Swelling from knee to ankle persists, no significant improvement; no erythema, no warmth. NEUROLOGICAL: Cranial nerves II-XII intact. Normal speech. Laboratory Results - last 24 hr 12/20/18 12/20/18 12/21/18 06:55 16:40 07:10 WBC 6.8 RBC 3.92 L Hgb 12.1 Hct 36.3 MCV 92.6 MCH 30.9 MCHC 33.4 RDW 12.8 Plt Count 208 MPV 7.9 Absolute Neuts (auto) 4.6 Neutrophils % 67.2 Lymphocytes % 21.1 Monocytes % 8.1 Eosinophils % 2.9 Basophils % 0.7 Sodium Potassium Chloride Carbon Dioxide Anion Gap BUN Creatinine Creat Clearance w eGFR Random Glucose Calcium Magnesium Total Bilirubin AST ALT Alkaline Phosphatase Total Protein Albumin Blood Type O POSITIVE O POSITIVE Antibody Screen Negative 12/21/18 07:10 WBC RBC Hgb Hct MCV MCH MCHC RDW Plt Count MPV Absolute Neuts (auto) Neutrophils % Lymphocytes % Monocytes % Eosinophils % Basophils % Sodium 136 Potassium 3.7 Chloride 106 Carbon Dioxide 27 Anion Gap 3 L BUN 20 H Creatinine 1.0 Creat Clearance w eGFR 74.31 Random Glucose 128 H Calcium 8.6 Magnesium 1.8 Total Bilirubin 1.1 H AST 16 ALT 16 Alkaline Phosphatase 71 D Total Protein 5.7 L Albumin 3.2 L Blood Type Antibody Screen Active Medications Generic Name Dose Route Start Last Admin Trade Name Freq PRN Reason Stop Dose Admin Acetaminophen 1,000 mg 12/20/18 20:21 Ofirmev Injection - IVPB Q6H PRN PAIN LEVEL 1-5 Atorvastatin Calcium 40 mg 12/21/18 22:00 Lipitor - PO HS GONZÁLEZ Dextrose/Sodium Chloride 1,000 mls @ 75 mls/hr 12/20/18 20:30 12/20/18 20:30 D5-Ns - IV 75 mls/hr ASDIR GONZÁLEZ Administration Metoprolol Succinate 25 mg 12/21/18 10:00 12/21/18 09:20 Toprol Xl - PO 25 mg DAILY GONZÁLEZ Administration Morphine Sulfate 2 mg 12/20/18 20:20 12/20/18 21:14 Morphine Injection - IVPUSH 2 mg Q6H PRN Administration PAIN LEVEL 6-10 Triamterene/HCTZ 1 cap 12/21/18 10:00 12/21/18 09:20 Dyazide 25/37.5mg PO 1 cap DAILY GONZÁLEZ Administration ASSESSMENT/PLAN 68 year-old male with a PMH significant for HTN, HLD, atrial fibrillation on ASA only, s/p left total knee arthroplasty in 10/2017. Placed on observation for a large left calf hematoma. 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 Cronin stopped Xarelto at that time and switched patient to ASA --seen and evaluated last night by Dr. Deleon, no compartment syndrome: anterior and medical compartments were soft; posterior compartments superficial 5mmHg, deep 11mmHg; no acute surgical intervention --will get hematology consult --keep leg elevated Atrial fibrillation --presently in sinus rhythm --hold ASA secondary to bleed --continue Toprol XL 25mg daily Hypertension --BP stable --continue traimterine/HCTZ Hyperlipidemia --continue atorvastatin FEN Fluids: PO intake adequate Electrolytes: replete as indicated Nutrition: low sodium DVT prophylaxis: hold chemical prophylaxis due to bleeding; SCD right leg; oob Dispo: continues to require observation. Full code. Visit type - Emergency Visit Emergency Visit: Yes ED Registration Date: 12/20/18 Care time: The patient presented to the Emergency Department on the above date and was hospitalized for further evaluation of their emergent condition. - New Patient This patient is new to me today: No - Critical Care Critical Care patient: No
[2018-12-21] MEDS: DEXTROSE 5%-NORMAL SALINE 1,000 ML IV SCH (21:29)
[2018-12-21] MEDS ORDERED: ATORVASTATIN CA 40 MG TABLET (FP) PO SCH (22:00)
[2018-12-22 08:15] LABS: HEMATOCRIT 38.3 % (35.4-49); HEMOGLOBIN 12.7 GM/dl (11.7-16.9); MCH 30.8 pg (25.7-33.7); MCHC 33.2 g/dl (32.0-35.9); MEAN CELL VOLUME 92.7 fl (80-96); PLATELET COUNT 209 K/MM3 (134-434); RBC 4.13 M/mm3 (4.00-5.60); RDW 12.5 % (11.9-15.9); WHITE BLOOD COUNT 7.7 K/mm3 (4.0-10.8)
[2018-12-22] MEDS ORDERED: PT OWN MED DRAWER 7, Y5N ONE (09:17)
[2018-12-22] MEDS: metoPROLOL SUCCINATE 25 MG TAB.SR.24H (FP) PO SCH (09:39)
[2018-12-22] MEDS: TRIAMTERENE AND HCTZ - 37.5 MG/25 MG CAPSULE PO SCH (09:40)
[2018-12-22 11:24] LABS: INR 1.15 (0.82-1.09); PROTHROMBIN TIME (PATIENT) 12.8 SEC (10.2-13.0)
--- NOTE | 2018-12-22 12:18 | DS ---
Physical Exam: SUBJECTIVE: Patient seen and examined. LLE still swollen. No other complaints. OBJECTIVE: Vital Signs Period Temp Pulse Resp BP Sys/Chavira Pulse Ox Last 24 Hr 97.5 F-99.1 F 67-76 17-19 127-137/62-64 98-99 PHYSICAL EXAM GENERAL: Awake, alert, and fully oriented, in no acute distress. LUNGS: Breath sounds equal, clear to auscultation bilaterally. No wheezes, and no crackles. No accessory muscle use. HEART: Regular rate and rhythm, S1 and S2 ABDOMEN: Soft, nontender, not distended, normoactive bowel sounds, no guarding, no rebound tenderness UPPER EXTREMITIES: 2+ pulses, warm, well-perfused. No cyanosis. No clubbing. No peripheral edema. LEFT LOWER EXTREMITY: strong palpable DP pulse, 2+ pulses, warm, well-perfused. Swelling from knee to ankle persists, no significant improvement; no erythema, no warmth. NEUROLOGICAL: Cranial nerves II-XII intact. Normal speech. LABS Laboratory Results - last 24 hr 12/22/18 12/22/18 12/22/18 07:06 11:05 11:05 WBC 7.7 RBC 4.13 Hgb 12.7 Hct 38.3 MCV 92.7 MCH 30.8 MCHC 33.2 RDW 12.5 Plt Count 209 MPV 8.0 PT with INR 12.8 INR 1.15 PTT (Actin FS) 31.4 HOSPITAL COURSE: Date of Admission:12/20/18 Date of Discharge: 12/22/18 Pre hospital course 68 year-old male with a PMH significant for HTN, HLD, atrial fibrillation on ASA only, s/p left total knee arthroplasty in 10/2017, who presents to the ED with pain and swelling to left lower leg x 1 day. 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 He went to work yesterday morning in his usual state of health. During the course of the day he developed pain in his left lower leg. The pain progressed throughout the day, associated with swelling. He came home limping. He elevated and iced the leg and went to bed. He awoke during the night with severe pain and came to the ED. He has difficulty ambulating. Denies fever, sweats, chills. Patient cannot recall injuring the leg or any type of trauma. He did have a previous episode of a hematoma around the left knee approximately one month post-op. At the time he was Xarelto. His title insurance agent stopped Xarelto and switched patient to ASA. Patient has been on ASA ever since, about 11 months. ER course (1) Hgb 13.8 (2) US left leg: (1) negative for DVT; (2) large complex mass wihtin medical calf c/w hematoma (3) CT LLE: 6.2 x 3.5 x 13.9cm hematoma within the gastrocnemius muscle of the proximal calf (4) ECG: sinus rhythm Subsequent hospital course 68 year-old male with a PMH significant for HTN, HLD, atrial fibrillation on ASA only, s/p left total knee arthroplasty in 10/2017. Placed on observation for a large left calf hematoma. Large hematoma within left gastrocnemius muscle --12/20 CT LLE: 6.2 x 3.5 x 13.9cm hematoma within the gastrocnemius muscle of the proximal calf --seen and evaluated by Dr. 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 --seen and evaluated by hematology: will followup with patient as outpatient Atrial fibrillation --presently in sinus rhythm --ASA was held secondary to bleed; title insurance agent aware, OK to hold ASA until patient sees him in followup --continued Toprol XL 25mg daily Hypertension --BP stable --continued traimterine/HCTZ Hyperlipidemia --continued atorvastatin Patient to follow up with surgery in one week, hematology, PCP, and title insurance agent Minutes to complete discharge: 35 Discharge Summary Reason For Visit: HEMATOMA LEFT LOWER EXTREMITY Current Active Problems A-fib (Acute) HLD (hyperlipidemia) (Acute) HTN (hypertension) (Acute) Hematoma of left lower extremity (Acute) Left leg swelling (Acute) Localized swelling of lower leg (Acute) Obesity (Acute) Condition: Stable - Instructions Diet, Activity, Other Instructions: It is recommended you follow up with the following providers: 1. Dr. Devonte Deleon, surgeon; within one week 2. Dr. Mari Hou, etl informatica architect; within one week 3. Dr. Patel, primary care provider; within 48 hours You are NOT cleared to go back to work at this time. Do NOT take aspirin, motrin, ibuprofen, naprosyn, Alleve or any other type of NSAID. Return to the emergency department for any new or worsening symptoms. Referrals: Mari Hou MD [Staff Physician] - 1 Week Devonte Hi MD [Staff Physician] - 1 Week Vicente Patel MD [Staff Physician] - Disposition: HOME - Home Medications Comprehensive Discharge Medication List: Ambulatory Orders Atorvastatin Ca [Lipitor] 40 mg PO HS 10/13/17 Metoprolol Succinate [Toprol Xl] 25 mg PO DAILY 10/13/17 Triamterene/Hydrochlorothiazid [Triamterene-Hctz 37.5-25 mg Cp] 1 each PO DAILY 10/13/17 traMADol HCL [Ultram -] 50 mg PO Q4H PRN #90 tablet MDD 6 10/18/17 Aspirin 81 mg PO DAILY 12/20/18 This patient is new to me today: No Emergency Visit: Yes ED Registration Date: 12/20/18 Care time: The patient presented to the Emergency Department on the above date and was hospitalized for further evaluation of their emergent condition. Critical Care patient: No - Discharge Referral Referred to [facility] No
[2018-12-22 14:53] VITALS: BP 142/58; PULSE 66; TEMP 98.7
--- NOTE | 2018-12-22 22:23 | CONSULT ---
Consult Consult Specialty:: hematology Referred by:: Chapo Albert NP Reason for Consultation:: calf hematoma - History of Present Illness Chief Complaint: L calf pain History of Present Illness: Pt presented w acute onset calf pain/swelling noted 3 d ago. Denies any trauma. Found to have calf hematoma. He takes daily ASA. Previously used xarelto till L knee surgery last year. Denies any h/o easy bleeding/bruising. Has had cardiac cath and knee surgery w/o excessive bleeding. No known FH bleeding d/o. h/h stable here and swelling/pain have improved. Deemed not to have a compartment syndrome. Per cardiology, to d/c ASA - History Source History Provided By: Patient, Medical Record - Past Medical History Cardio/Vascular: Yes: AFIB, HTN - Alcohol/Substance Use Hx Alcohol Use: No - Smoking History Smoking history: Never smoked Have you smoked in the past 12 months: No Home Medications - Allergies Allergies/Adverse Reactions: Allergies Allergy/AdvReac Type Severity Reaction Status Date / Time No Known Drug Allergies Allergy Verified 12/20/18 06:32 - Home Medications Home Medications: Ambulatory Orders Atorvastatin Ca [Lipitor] 40 mg PO HS 10/13/17 Metoprolol Succinate [Toprol Xl] 25 mg PO DAILY 10/13/17 Triamterene/Hydrochlorothiazid [Triamterene-Hctz 37.5-25 mg Cp] 1 each PO DAILY 10/13/17 traMADol HCL [Ultram -] 50 mg PO Q4H PRN #90 tablet MDD 6 10/18/17 Physical Exam Vital Signs: Vital Signs Temperature 98.7 F 12/22/18 10:00 Pulse Rate 66 12/22/18 10:00 Respiratory Rate 20 12/22/18 10:00 Blood Pressure 142/58 L 12/22/18 10:00 O2 Sat by Pulse Oximetry (%) 98 12/22/18 05:45 Constitutional: Yes: Well Nourished, No Distress Eyes: Yes: WNL HENT: Yes: WNL Neck: Yes: WNL, Supple Cardiovascular: Yes: Regular Rate and Rhythm Respiratory: Yes: CTA Bilaterally Gastrointestinal: Yes: Soft Extremities: Yes: Other (L calf swelling, mildly ecchymotic R no swelling) Labs: CBC, BMP 12/22/18 07:06 12/21/18 07:10 Assessment/Plan spont calf hematoma? unknown etiol no known bleeding d/o bkd ASA 81 mg use obtain coags if h/h decreases, consider transfuse plts would w/u for underlying blood d/o as outpt d/w team
== END 2018-12-22 13:11 | disposition home or self-care (01) ==
LOC: FER 06:20 → FM/S 13:00
PROVIDERS: ADMIT Internal Medicine; ATTEND Nurse Practitioner Acute Care
PROC: 3E0333Z Introduction of Anti-inflammatory into Peripheral Vein, Percutaneous Approach (ICD-10-PCS; principal; 2018-12-20)
PROC: 3E033NZ Introduction of Analgesics, Hypnotics, Sedatives into Peripheral Vein, Percutaneous Approach (ICD-10-PCS; 2018-12-20)
PROC: 3E0337Z Introduction of Electrolytic and Water Balance Substance into Peripheral Vein, Percutaneous Approach (ICD-10-PCS; 2018-12-20)
DX: S80.12XA Contusion of left lower leg, initial encounter (principal); R22.40 Localized swelling, mass and lump, unspecified lower limb; I48.2 Chronic atrial fibrillation; I10 Essential (primary) hypertension; E78.5 Hyperlipidemia, unspecified; E66.9 Obesity, unspecified; Z68.31 Body mass index [BMI] 31.0-31.9, adult; Z79.82 Long term (current) use of aspirin; Z95.810 Presence of automatic (implantable) cardiac defibrillator; Z96.652 Presence of left artificial knee joint; X58.XXXA Exposure to other specified factors, initial encounter; Y93.9 Activity, unspecified; Y92.9 Unspecified place or not applicable
CPT/HCPCS: 36415; 73560-TC-LT-FY; 73701-TC-RT; 80053; 82550; 82553; 83735; 84550; 85025; 85027; 85610; 85730; 86850; 86900; 86901; 87040; 93005; 93971-TC; 99283-25; G0378; J7030

== ENCOUNTER 2020-04-15 11:15 | Day surgery (SDC) | payer OTHER ==
[2020-04-11 11:15] VITALS: BMI 31.5
--- NOTE | 2020-04-15 07:49 | HP ---
Admitting History and Physical - Admission Chief Complaint: Loose body left knee History of Present Illness: 69 year old male presents in regard to his left knee. Patient underwent a left total knee replacement in October 2017. Following his surgery, he continued to have pain. He admits to mechanical symptoms including locking/catching of the knee and buckling. Patient failed conservative treatment measures including PO medications, exercise programs and activity modification. CT scan obtained revealed showed lateral gutter loose body, [id number] lateral to the patella which has the signal characteristics of bone. Otherwise knee replacement was unremarkable and there was no fracture or loosening. Possible loose body versus heterotopic ossification. At this point, patient would like to proceed with surgical intervention left knee open removal of loose body. History Source: Patient - Past Medical History Cardiovascular: Yes: AFIB, HTN, Hyperlipdemia Pulmonary: Yes: Sleep Apnea Gastrointestinal: Yes: Hemorrhoids Heme/Onc: Yes: Hypercoaguable State (after TKA in 2017) Musculoskeletal: Yes: Osteoarthritis Additional Past Medical History: Atrial fibrillation, dr campbell - s/p PIEDAD, DCCV in February 2015 (reverted to afib by March 2015) - s/p afib ablation Jun 2015 [facility] 12/11. Adm for pulm embolus. not proven. 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 Left TKA 10/2017 arthroscopic surgery left knee, dr Lay 01/11 Left knee replacement oct 2017 bladder calculi, ct scan [facility] 03/02/06 Colonoscopy 08/09, normal Colonoscopy June 16, 2016 (hemorrhoids) atrial ablation 06/18 - Smoking History Smoking history: Never smoked Have you smoked in the past 12 months: No - Alcohol/Substance Use Hx Alcohol Use: No Home Medications - Allergies Allergies/Adverse Reactions: Allergies Allergy/AdvReac Type Severity Reaction Status Date / Time No Known Drug Allergies Allergy Verified 12/20/18 06:32 - Home Medications Home Medications: Ambulatory Orders Atorvastatin Ca [Lipitor] 40 mg PO HS 10/13/17 Metoprolol Succinate [Toprol Xl] 25 mg PO DAILY 10/13/17 Triamterene/Hydrochlorothiazid [Triamterene-Hctz 37.5-25 mg Cp] 1 each PO DAILY 10/13/17 traMADol HCL [Ultram -] 50 mg PO Q4H PRN #90 tablet MDD 6 10/18/17 Review of Systems - Review of Systems Musculoskeletal: reports: Decreased ROM (left knee), Joint Pain (left knee), Joint Swelling (left knee) Physical Examination Constitutional: Yes: Well Nourished, No Distress Eyes: Yes: Conjunctiva Clear HENT: Yes: Atraumatic Neck: Yes: Supple Cardiovascular: Yes: Regular Rate and Rhythm Respiratory: Yes: Regular Gastrointestinal: Yes: Soft ...Rectal Exam: Yes: Deferred Musculoskeletal: Yes: Joint Swelling (left knee) Assessment/Plan 69 year old male presents in regard to his left knee. Patient underwent a left total knee replacement in October 2017. Following his surgery, he continued to have pain. He admits to mechanical symptoms including locking/catching of the knee and buckling. Patient failed conservative treatment measures including PO medications, exercise programs and activity modification. CT scan obtained revealed showed lateral gutter loose body, [id number] lateral to the patella which has the signal characteristics of bone. Otherwise knee replacement was unremarkable and there was no fracture or loosening. Possible loose body versus heterotopic ossification. At this point, patient would like to proceed with surgical intervention left knee open removal of loose body. Pros, cons, risks, benefits and alternatives of open removal of left knee loose body was discussed with the patient at length. Patient confirms his understanding and consents to proceed with an open removal of left knee loose body.
[2020-04-15] MEDS ORDERED: ceFAZolin SODIUM 1 GM VIAL ONE ×2 (12:25→13:24)
[2020-04-15] MEDS ORDERED: MIDAZOLAM HCL 2 MG/2 ML SINGLE DOSE VIAL ONE ×2 (13:15→13:55)
[2020-04-15] MEDS ORDERED: SUCCINYLCHOLINE CHLORIDE 200 MG/10 ML SYRINGE ONE (13:22)
[2020-04-15] MEDS ORDERED: PROPOFOL 20 ML ONE ×2 (13:22)
[2020-04-15] MEDS ORDERED: TRANEXAMIC ACID 1000 MG/10 ML VIAL ONE (14:12)
[2020-04-15] MEDS ORDERED: VANCOMYCIN 1,000 MG VIAL (RESTRICTED TO ID ONLY) ONE (14:12)
[2020-04-15] MEDS ORDERED: oxyCODONE HCL 5 MG TABLET PO PRN (14:59)
[2020-04-15] MEDS ORDERED: ONDANSETRON 4 MG/2 ML VIAL IVPUSH PRN (14:59)
[2020-04-15] MEDS ORDERED: LACTATED RINGERS SOLUTION 1,000 ML IV SCH (15:00)
[2020-04-15] MEDS ORDERED: BUPIVICAINE 0.25%/MORPH PF/KETOROLAC - 51ML DISP.SYRINGE IA ONE ×2 (15:06→15:38)
[2020-04-15] MEDS ORDERED: VANCOMYCIN 1,000 MG VIAL (RESTRICTED TO ID ONLY) IVPB ONE (15:18)
[2020-04-15] MEDS ORDERED: TRANEXAMIC ACID 1000 MG/10 ML VIAL IVPB ONE (15:38)
--- NOTE | 2020-04-15 16:06 | OP ---
Operative Note - Note: Operative Date: 04/15/20 Pre-Operative Diagnosis: Left painful TKA / heterotopic ossification Operation: Left TKA arthrotomy, excision of heterotopic ossification Post-Operative Diagnosis: Same as Pre-op Surgeon: Devonte Cooper Anesthesia: Spinal Estimated Blood Loss (mls): 100
[2020-04-15] MEDS ORDERED: ACETAMINOPHEN 1000 MG/100 ML VIAL (NON FORMULARY) IVPB ONE (16:07)
[2020-04-15] MEDS ORDERED: ACETAMINOPHEN INJECTION 100 ML IVPB ONE (16:07)
[2020-04-15] MEDS ORDERED: oxyCODONE HCL 10 MG SUSTAINED ACTING TABLET PO ONE (16:07)
[2020-04-15] MEDS ORDERED: oxyCODONE HCL 5 MG TABLET PO ONE (16:08)
[2020-04-15] MEDS ORDERED: ONDANSETRON 4 MG/2 ML VIAL ONE (16:22)
[2020-04-15 17:29] VITALS: TEMP 97.8
[2020-04-15] MEDS ORDERED: oxyCODONE HCL 5 MG TABLET ONE (18:09)
[2020-04-15] MEDS ORDERED: oxyCODONE HCL 10 MG SUSTAINED ACTING TABLET ONE (18:10)
[2020-04-15 19:01] VITALS: BP 142/84; PULSE 64
--- NOTE | 2020-04-18 17:12 | PATH ---
Surgical Pathology Report Patient Name: YUNG CORNELL [facility]. Rec. #: [id number] /Age/Gender: 1950 (Age: 69) / M Account: [id number] Location: [facility] Taken: 04/15/2020 Received: 04/15/2020 Reported: 04/18/2020 Physicians: Devonte Cooper M.D. Specimen(s) Received LEFT KNEE LOOSE BODY - BONE / HETEROTOPIC OSSIFICATION Clinical History Left knee heterotopic ossification Final Diagnosis LOOSE BODY/BONE, HETEROTOPIC OSSIFICATION, KNEE, LEFT, ARTHROTOMY, EXCISION OF LOOSE BODY: BENIGN BONE, FATTY MARROW, AND SURROUNDING DENSE FIBROCONNECTIVE TISSUE. Electronically Signed Haven Collins M.D. Gross Description Received in formalin labeled "left knee loose body/bone," is a 3.7 x 1.4 x 0.8 cm martinez-yellow irregular portion of bone. Jukebox Checker sections are submitted in one cassette, following decalcification. 04/17/2020 formerly [facility]04/17/2020
--- NOTE | 2020-04-23 11:34 | OP ---
DATE OF OPERATION: 04/15/2020 PREOPERATIVE DIAGNOSIS: Left painful total knee replacement, heterotopic ossification/loose body. POSTOPERATIVE DIAGNOSIS: Left painful total knee replacement, heterotopic ossification/loose body. PROCEDURE: Left knee arthrotomy, excision of heterotopic ossification, irrigation and debridement, and wound closure. INDICATIONS: This is a 69-year-old male who underwent a left total knee replacement successfully but developed lateral peripatellar pain and swelling several months postoperatively. X-rays and a CAT scan revealed a massive heterotopic ossification lateral to the patella and extending into the lateral gutter which was increasing in size on successive films. In addition, the loose body was palpable from the surface. It was directly tender to palpation and caused discomfort with range of motion of the knee. The patient was initially treated conservatively with an injection of cortisone and medications and physical therapy but continued to have severe pain. We discussed open removal of the fragments and the patient agreed. The risks, benefits, and alternatives to the procedure were explained and the patient elected to proceed with the surgery. DETAILS OF PROCEDURE: On the day of surgery, the patient was taken to the operating room and placed supine on the OR table. All bony prominences were padded. Spinal anesthesia was administered by the anesthesiologist. The left lower extremity was then prepped and draped in the usual sterile fashion and a time-out was then performed with the team to verify the patients identity, side, site, and the availability of any implants needed. The area of tenderness had been marked in the preop area. This corresponded to a palpable somewhat mobile hard mass lateral to the patella and extending into the lateral gutter. An incision was made lateral aspect of the knee overlying the lateral gutter. Care was taken to space this incision out significantly from the primary knee replacement incision so that there would not be any skin flap necrosis issues. Electrocautery and blunt and sharp dissection were used to carry this incision through all the subcutaneous layers down to the intracapsular portion of the knee. The knee replacement components were visualized. The osteophyte/heterotopic ossification was somewhat palpable but were not actually loose as seemed to be implied by the preoperative CT scan. Instead it was imbedded in the lateral retinaculum of the patella and was almost contiguous with the patella bone itself, although it was independently mobile. A mini C-arm was brought in and used to visualize the fragments and we kika a neal over its center point on the x-ray. From here, Bovie was used to carefully shell out fragments of heterotopic ossification from the lateral retinaculum of the patella being careful to leave as much as the soft tissue structure intact. Once this bone fragment had been removed, it was measured and found to be 4 x 2 x 1 cm in size. The wound was then thoroughly irrigated with normal saline via pulsatile lavage. A 3-minute dilute Betadine soak was performed. Following this, the deep tissues were closed with number 1 Vicryl sutures and oversewn with a 0 V-Loc 180 running barbed suture. The deep subcutaneous tissues were closed with 2-0 V-Loc 90 running barbed sutures. The superficial subcutaneous tissues were closed with 3-0 V-Loc 90 running monofilament suture. Dermabond skin adhesive was then applied for watertight seal and additional closure strength. A sterile compressive dressing and knee immobilizer was then applied. The patient was then awakened and taken to the PACU in stable condition. PALAK GARDNER M.D. [id number]
== END 2020-04-15 18:45 | disposition home or self-care (01) ==
LOC: FASU 11:15
PROVIDERS: ATTEND Student in an Organized Health Care Education/Training Program
PROC: 0SCC0ZZ Extirpation of Matter from Right Knee Joint, Open Approach (ICD-10-PCS; principal; 2020-04-15 14:11)
DX: M61.561 Other ossification of muscle, right lower leg (principal); I10 Essential (primary) hypertension; I48.91 Unspecified atrial fibrillation; E78.5 Hyperlipidemia, unspecified; G47.30 Sleep apnea, unspecified; M19.90 Unspecified osteoarthritis, unspecified site; Z99.89 Dependence on other enabling machines and devices; Z96.652 Presence of left artificial knee joint
CPT/HCPCS: 88304-TC; 88311-TC; 94760; J0131